=== PATIENT | female | born 2000 | race Two or more races ===

== ENCOUNTER → 2025-06-02 | Outpatient (CLI) | payer MEDICAID, SELFPAY ==
--- NOTE | 2025-06-02 10:07 | XR_ITS ---
Examination: Breast ultrasound, unilateral, right complete Date and time of exam: June 02, 2025, 1015 hours INDICATIONS: Patient states right breast lump retroareolar at 3 months Technique: Real-time durbin scale ultrasonographic imaging performed right breast including all 4 quadrants as well as nipple retroareolar and axillary region. Findings: 10:00 nodule circumscribed 7 x 6 mm Retroareolar cyst 5 x 5 mm IMPRESSION: BI-RADS Category 3: Probably benign findings Recommend 1 additional 6-month right breast sonogram follow-up to document stability of 10:00 nodule described above
== END | disposition home or self-care (01) ==
PROVIDERS: PCP Physician Assistant; Referring Provider Physician Assistant; Visit Provider Physician Assistant
DX: N63.11 Unspecified lump in the right breast, upper outer quadrant (principal)
CPT/HCPCS: 76641